=== PATIENT | female | born 1940 | race Caucasian/White ===

== ENCOUNTER 2024-08-14 14:44 | Inpatient (IN) | payer BC ==
[~2024-08-14] VITALS: Ht 167.6 cm; Wt 55.3 kg
[2024-08-14 15:22] VITALS: O2SAT 97
[2024-08-14 15:25] LABS: BASOPHILS % (AUTO) 0.7 % (0.0-2.0); EOSINOPHILS % (AUTO) 0.3 % (0.0-6.0); HEMATOCRIT 39 % (33-45); HEMOGLOBIN 13.5 g/dL (11.5-14.8); LYMPHOCYTES # (AUTO) 1.4 K/uL (0.8-4.8); LYMPHOCYTES % (AUTO) 21.1 % (20.0-44.0); MEAN CORPUSCULAR HEMOGLOBIN 33 PG (26.0-33.0); MEAN CORPUSCULAR HGB CONC 34 g/dl (31.0-36.0); MEAN CORPUSCULAR VOLUME 97 fL (82-100); MONOCYTES # (AUTO) 0.4 K/uL (0.1-1.30); MONOCYTES % (AUTO) 5.9 % (2.0-12.0); NEUTROPHILS # (AUTO) 4.7 K/uL (1.8-8.9); PLATELET COUNT (AUTO) 203 K/uL (150-450); RED BLOOD CELL COUNT(AUTO) 4.04 MIL/uL (4.0-5.2); RED CELL DISTRIBUTION WIDTH 12.7 % (11.5-15.0); WHITE BLOOD COUNT (AUTO) 6.6 K/uL (4.3-11.0)
[2024-08-14 15:36] LABS: CREATININE 1.1 mg/dL (0.6-1.3); POTASSIUM 3.9 mmol/L (3.5-5.1)
[2024-08-14 15:37] LABS: INR 1.03 (0.91-1.10); PROTHROMBIN TIME 10.9 SECS (9.2-11.1)
[2024-08-14] MEDS ORDERED: MORPHINE SULFATE INJ 4 MG/ML DISP.SYRIN ONE (16:06)
[2024-08-14] MEDS ORDERED: ONDANSETRON HCL/PF 4 MG/2 ML VIAL ONE (16:06)
[2024-08-14] MEDS: MORPHINE SULFATE INJ 2 MG/ML DISP.SYRIN IV ONE (16:23)
[2024-08-14] MEDS: ONDANSETRON HCL/PF 4 MG/2 ML VIAL IVP ONE (16:24)
[2024-08-14] MEDS ORDERED: PREG-59 PO (16:38)
[2024-08-14] MEDS ORDERED: DONE5TAB34 PO (16:38)
[2024-08-14] MEDS ORDERED: MEMA5TAB42 PO (16:38)
[2024-08-14] MEDS ORDERED: ATOR10TA PO (16:38)
[2024-08-14] MEDS ORDERED: FURO20TA4 PO (16:38)
[2024-08-14] MEDS: HYDROMORPHONE 1 MG/1 ML DISP.SYRIN IV ONE (17:00)
[2024-08-14] MEDS ORDERED: MAGNESIUM HYDROXIDE 30 ML UDC PO PRN (17:30)
[2024-08-14] MEDS ORDERED: Z GUARD REMEDY 4 OZ OINT TP PRN (17:30)
[2024-08-14] MEDS ORDERED: ONDANSETRON HCL/PF 4 MG/2 ML VIAL IVP PRN (17:30)
[2024-08-14] MEDS ORDERED: ACETAMINOPHEN 325 MG TABLET PO PRN (17:30)
[2024-08-14] MEDS ORDERED: MAG HYDROX/AL HYDROX/SIMETH 30 ML UDC PO PRN (17:30)
[2024-08-14 19:15] VITALS: BP 145/79; TEMP 98.2; O2SAT 95
[2024-08-14] MEDS: MORPHINE SULFATE INJ 2 MG/ML DISP.SYRIN IV PRN (20:52)
[2024-08-14] MEDS: PREGABALIN 100 MG CAPSULE PO SCH (21:49)
[2024-08-15 08:30] VITALS: BP 144/87; TEMP 97.5; O2SAT 98
[2024-08-15] MEDS: DONEPEZIL 5 MG TABLET PO SCH (09:00)
[2024-08-15] MEDS: MEMANTINE HCL 5 MG TABLET PO SCH (09:00)
[2024-08-15 09:56] LABS: CALCIUM, SERUM 8.6 mg/dL (8.5-10.1); MAGNESIUM 1.8 mg/dL (1.8-2.4); PHOSPHORUS 4.4 mg/dL (2.5-4.9); POTASSIUM 4.2 mmol/L (3.5-5.1)
[2024-08-15] MEDS ORDERED: BUPIVACAINE 0.5 % PF 150 MG/30 ML VIAL ONE (10:29)
[2024-08-15] MEDS ORDERED: POLYMYXIN B SULFATE 500,000 UNITS ONE (10:29)
[2024-08-15] MEDS ORDERED: MIDAZOLAM HCL 2 MG/2ML VIAL ONE (10:51)
[2024-08-15] MEDS ORDERED: FENTANYL PF 100MCG/2ML AMPUL ONE (10:51)
[2024-08-15] MEDS ORDERED: TRANEXAMIC ACID 1,000 MG/10 ML VIAL ONE ×2 (10:51→12:29)
[2024-08-15] MEDS ORDERED: Magnesium 1 GM/2 ML VIAL ONE (10:51)
[2024-08-15] MEDS ORDERED: ROPIVACAINE HCL 0.5% 5 MG/ML 30ML VIAL ONE (10:51)
[2024-08-15] MEDS ORDERED: FAMOTIDINE/PF INJ 20 MG/2 ML VIAL IV ONE (10:52)
[2024-08-15 10:56] LABS: BASOPHILS % (AUTO) 0.3 % (0.0-2.0); EOSINOPHILS % (AUTO) 0.2 % (0.0-6.0); HEMATOCRIT 37 % (33-45); HEMOGLOBIN 12.8 g/dL (11.5-14.8); LYMPHOCYTES # (AUTO) 1.1 K/uL (0.8-4.8); LYMPHOCYTES % (AUTO) 15.7 % (20.0-44.0); MEAN CORPUSCULAR HEMOGLOBIN 33 PG (26.0-33.0); MEAN CORPUSCULAR HGB CONC 34 g/dl (31.0-36.0); MEAN CORPUSCULAR VOLUME 97 fL (82-100); MONOCYTES # (AUTO) 0.6 K/uL (0.1-1.30); MONOCYTES % (AUTO) 8.9 % (2.0-12.0); NEUTROPHILS # (AUTO) 5.1 K/uL (1.8-8.9); NEUTROPHILS % (AUTO) 74.9 % (43.0-81.0); PLATELET COUNT (AUTO) 187 K/uL (150-450); RED BLOOD CELL COUNT(AUTO) 3.86 MIL/uL (4.0-5.2); RED CELL DISTRIBUTION WIDTH 12.8 % (11.5-15.0); WHITE BLOOD COUNT (AUTO) 6.9 K/uL (4.3-11.0)
[2024-08-15] MEDS ORDERED: BUPIVACAINE 0.25% 75 MG/30 ML VIAL ONE (12:24)
[2024-08-15] MEDS ORDERED: MEPERIDINE HCL/PF 50 MG/ML DISP.SYRIN IV PRN (13:00)
[2024-08-15] MEDS ORDERED: HYDROMORPHONE 1 MG/1 ML DISP.SYRIN IV PRN (13:00)
[2024-08-15] MEDS ORDERED: LABETALOL HCL IV 100MG VIAL IV PRN (13:00)
[2024-08-15 16:00] VITALS: BP 137/65; TEMP 97.7; O2SAT 94
[2024-08-15] MEDS: CEFAZOLIN 2 GM in IV D5W 100 ML IV SCH (19:19)
[2024-08-15 20:00] VITALS: BP 116/82; TEMP 98.6; O2SAT 98
[2024-08-16 07:02] LABS: BASOPHILS % (AUTO) 0.2 % (0.0-2.0); EOSINOPHILS % (AUTO) 0.1 % (0.0-6.0); HEMATOCRIT 36 % (33-45); HEMOGLOBIN 12.1 g/dL (11.5-14.8); LYMPHOCYTES # (AUTO) 0.7 K/uL (0.8-4.8); LYMPHOCYTES % (AUTO) 9.2 % (20.0-44.0); MEAN CORPUSCULAR HEMOGLOBIN 33 PG (26.0-33.0); MEAN CORPUSCULAR HGB CONC 34 g/dl (31.0-36.0); MEAN CORPUSCULAR VOLUME 98 fL (82-100); MONOCYTES # (AUTO) 0.7 K/uL (0.1-1.30); MONOCYTES % (AUTO) 8.7 % (2.0-12.0); NEUTROPHILS # (AUTO) 6.4 K/uL (1.8-8.9); NEUTROPHILS % (AUTO) 81.8 % (43.0-81.0); PLATELET COUNT (AUTO) 167 K/uL (150-450); RED BLOOD CELL COUNT(AUTO) 3.66 MIL/uL (4.0-5.2); RED CELL DISTRIBUTION WIDTH 12.3 % (11.5-15.0); WHITE BLOOD COUNT (AUTO) 7.8 K/uL (4.3-11.0)
[2024-08-16 07:10] LABS: CALCIUM, SERUM 8.6 mg/dL (8.5-10.1); CREATININE 1.1 mg/dL (0.6-1.3)
[2024-08-16] MEDS: ENOXAPARIN SODIUM 40 MG/0.4 ML DISP.SYRIN SQ SCH (14:17)
[2024-08-16 20:00] VITALS: BP 127/76; TEMP 98.2; O2SAT 98
[2024-08-17 08:36] VITALS: BP 115/65; TEMP 98.6; O2SAT 96
[2024-08-17] MEDS ORDERED: ENOX40DI SQ (08:48)
== END 2024-08-17 14:00 | DRG 522 ==
LOC: ER 14:50 → MED 17:20
PROVIDERS: ADMIT Internal Medicine; ATTEND Internal Medicine
PROC: 0SRS0J9 Replacement of Left Hip Joint, Femoral Surface with Synthetic Substitute, Cemented, Open Approach (ICD-10-PCS; principal; 2024-08-15)
DX: S72.002A Fracture of unspecified part of neck of left femur, initial encounter for closed fracture (principal); W01.0XXA Fall on same level from slipping, tripping and stumbling without subsequent striking against object, initial encounter; Y92.008 Other place in unspecified non-institutional (private) residence as the place of occurrence of the external cause; E78.5 Hyperlipidemia, unspecified; H91.93 Unspecified hearing loss, bilateral; G30.9 Alzheimer's disease, unspecified; F02.80 Dementia in other diseases classified elsewhere, unspecified severity, without behavioral disturbance, psychotic disturbance, mood disturbance, and anxiety; R79.89 Other specified abnormal findings of blood chemistry; R60.9 Edema, unspecified; G62.9 Polyneuropathy, unspecified; M81.0 Age-related osteoporosis without current pathological fracture
CPT/HCPCS: 36415; 71045-TC; 72170-TC; 73502; 73552; 73560-TC; 73700-TC; 80048-TC; 83735-TC; 84100-TC; 84484-TC; 85025-TC; 85730-TC; 86850-TC; 88305-TC; 88311-TC; 97110-TC; 97530-TC; A4217; A4223; A6209; C1713; C1776; G0378; J0690; J1650; J2250; J2270; J2405; J2795; J3010; J3475; J3490; J7030; J7050; J7060